=== PATIENT | male | born 2000 | race Two or more races ===

== ENCOUNTER 2019-11-29 22:40 | Emergency (ER) | payer MEDICAID, OTHER ==
[~2019-11-29] VITALS: Ht 180.3 cm; Wt 62.6 kg
[2019-11-29 22:50] VITALS: BP 130/78
--- NOTE | 2019-11-29 22:53 | NUR ---
TO LOBBY A/W BED AMBULATORY
--- NOTE | 2019-11-29 22:55 | NUR ---
EKG PERFORMED IN TRIAGE ROOM WITH RN AND FAMILY MEMBER PRESENT
--- NOTE | 2019-11-30 01:10 | NUR ---
PATIENT LWBS AT THIS TIME.
== END 2019-11-30 01:10 | disposition left against medical advice (07) ==
LOC: MED 22:40
DX: R07.9 Chest pain, unspecified (principal); Z53.21 Procedure and treatment not carried out due to patient leaving prior to being seen by health care provider
CPT/HCPCS: 93005; 99281; 99283